=== PATIENT | female | born 1975 | race Caucasian/White ===

== ENCOUNTER 2018-06-17 12:24 | Emergency (ER) | END 2018-06-17 16:05 | disposition home or self-care (01) ==

== ENCOUNTER 2018-09-12 08:26 | Emergency (ER) | payer OTHER ==
[~2018-09-12] VITALS: Wt 72.9 kg
[~2018-09-12 08:26] MED LIST: AZIT250T PO; CETI10CA PO; FIORINAL PO; IBUP-1542 PO; SUMA25TA34 PO
[2018-09-12 08:30] VITALS: BP 139/75; PULSE 72; RESP 18
[2018-09-12] MEDS ORDERED: KETOROLAC 60 MG INJ IM STA (09:37)
[2018-09-12] MEDS ORDERED: ACET500C5 PO (10:43)
[2018-09-12] MEDS ORDERED: D-ME473S2 PO (10:43)
--- NOTE | 2018-09-12 11:33 | ERD ---
ER Documentation Chief Complaint Chief Complaint DRY COUGH/CONGESTION/HEADACHE X 5 DAYS; HPI 43-year-old female patient with a past medical history of migraine headaches presents to ED complaining of dry cough, congestion that, headache that started 5 days ago. Patient reports that she also has body aches. States that she has sore throat, and feels like she cannot cough up the phlegm. Denies any fever, chills, nausea, vomiting, diarrhea, neck stiffness. Denies any recent travel. Denies any chest pain, shortness of breath. ROS All systems reviewed and are negative except as per history of present illness. Medications Home Meds Active Scripts Acetaminophen* (Tylophen*) 500 Mg Capsule, 1 CAP PO Q6H PRN for PAIN AND OR ELEVATED TEMP, #20 CAP Prov:HEATHER BAPTISTE PA-C 09/12/18 Dextromethorphan Hb-Promethazine Hcl* (Promethazine DM* Syrup) 473 Ml Syrup, 5 ML PO Q6 PRN for COUGH, #100 ML Prov:HEATHER BAPTISTE PA-C 09/12/18 Cetirizine Hcl* (Zyrtec*) 10 Mg Capsule, 10 MG PO DAILY, #10 TAB.CHEW Prov:HEATHER ABPTISTE PA-C 06/17/18 Ibuprofen* (Motrin*) 600 Mg Tab, 600 MG PO Q6, #30 TAB Prov:HEATHER BAPTISTE PA-C 06/17/18 Azithromycin* (Zithromax*) 250 Mg Tablet, 250 MG PO .ZPACK DIRECTED, #6 TAB TAKE 500 MG (2 TABS) THE FIRST DAY THEN 250 MG (1 TAB) DAYS 2-5 Prov:WALDEMAR BERGERON PA-C 07/03/15 Aspirin/Caffeine/Butalbital* (Fiorinal*) 1 Cap Cap, 1 CAP PO TID for HEADACHE, #20 CAP Prov:MISAEL ROMERO MD 05/23/15 Sumatriptan Succinate* (Imitrex*) 25 Mg Tablet, 25 MG PO BID PRN for HEADACHE, #14 TAB May repeat after 2 hours if needed; MAX 200 mg/24 hours Prov:MISAEL ROMERO MD 05/23/15 Allergies Allergies: Coded Allergies: Penicillins (Verified Allergy, Mild, 06/17/18) tetracycline (Verified Allergy, Mild, 06/17/18) PMhx/Soc History of Surgery: No Anesthesia Reaction: No Hx Neurological Disorder: Yes (migraine) Hx Respiratory Disorders: No Hx Cardiac Disorders: No Hx Psychiatric Problems: No Hx Miscellaneous Medical Probl: No Hx Alcohol Use: No Hx Substance Use: No Hx Tobacco Use: No FmHx Family History: No diabetes, No coronary disease Physical Exam Vitals Vital Signs Date Temp Pulse Resp B/P (MAP) Pulse Ox O2 O2 Flow FiO2 Time Delivery Rate 09/12/18 98.1 72 18 139/75 99 08:30 (96) Physical Exam Const: [id number]-[id number]-[id number], well-nourished. In no acute distress. Head: Atraumatic, normocephalic Eyes: Normal Conjunctiva without injection. No purulent discharge. PERRL. EOMI ENT: Normal external ear. Ear canal without erythema. Tympanic membrane pearly schumacher without effusion or bulging. Nasal canal clear with normal turbinates. Moist oropharynx without tonsillar exudates. Non-erythematous pharynx. Uvula midline. No drooling. No trismus. Neck: Full range of motion. No meningismus. No cervical lymphadenopathy. Resp: Clear to auscultation bilaterally. No wheezing, rhonchi, rales, or crackles. No accessory muscle use. No retractions. Cardio: Regular rate and rhythm. No murmurs, rubs or gallops. Abd: Soft, non tender, non distended. Normal bowel sounds. No palpable masses. No rebound tenderness. No guarding. Skin: No petechiae or rashes Back: No midline tenderness. No CVA tenderness. Ext: No cyanosis, or edema. Neur: Awake and alert. Psych: Normal Mood and Affect Results 24 hrs Laboratory Tests Test 09/12/18 09:57 POC Beta HCG, Qualitative NEGATIVE Current Medications Medications Dose Sig/Alejandro Start Time Status Last (Trade) Ordered Route PRN Stop Time Admin Dose Reason Admin Ketorolac 60 mg ONCE STAT 09/12/18 DC 09/12/18 Tromethamine IM 09:37 10:08 (Toradol) 09/12/18 09:38 Procedures/MDM 43-year-old female patient with no significant past medical history presents to the ED complaining of headache, sore throat, dry cough, congestion, headache that started 5 days ago. Patient is afebrile and nontoxic-appearing. Patient was treated here in the ED with Toradol 60 mg IM with slight improvement of her headache. This patient presents to the ED with symptoms consistent with a viral acute upper respiratory infection. Patient's physical exam include lungs which were clear to auscultation and a normal pulse oximetry. There is a low suspicion for pneumonia, pneumothorax, mononucleosis, pulmonary embolism, epiglottitis, otitis media, otitis externa, viral/strep pharyngitis, sinusitis, myocarditis, pericarditis, endocarditis, peritonsillar abscess, mastoiditis, retropharyngeal abscess, meningitis, sepsis, acute abdomen or other emergent conditions. Fluids, rest, and symptomatic treatment are recommended for the management of patient's symptoms. Diagnosis: Cough, Headache Discharge medications: Tylenol, Promethazine DM Patient was instructed to return to the ED for any new or worsening symptoms. They should otherwise follow up with the primary care provider within 2-3 days. The patient's questions were answered at the time of discharge. Patient understood and agreed with discharge management. Departure Diagnosis: Primary Impression: Cough Additional Impression: Headache Headache type: unspecified Headache chronicity pattern: unspecified pattern Intractability: not intractable Qualified Codes: R51 - Headache Condition: Stable Patient Instructions: Uri, Viral, No Abx (Adult) Referrals: [facility] YOU HAVE RECEIVED A MEDICAL SCREENING EXAM AND THE RESULTS INDICATE THAT YOU DO NOT HAVE A CONDITION THAT REQUIRES URGENT TREATMENT IN THE EMERGENCY DEPARTMENT. FURTHER EVALUATION AND TREATMENT OF YOUR CONDITION CAN WAIT UNTIL YOU ARE SEEN IN YOUR DOCTORS OFFICE WITHIN THE NEXT 1-2 DAYS. IT IS YOUR RESPONSIBILITY TO MAKE AN APPOINTMENT FOR FOLOW-UP CARE. IF YOU HAVE A PRIMARY DOCTOR --you should call your primary doctor and schedule an appointment IF YOU DO NOT HAVE A PRIMARY DOCTOR YOU CAN CALL OUR PHYSICIAN REFERRAL HOTLINE AT IF YOU CAN NOT AFFORD TO SEE A PHYSICIAN YOU CAN CHOSE FROM THE FOLLOWING [facility] [address] [facility]. [facility] [address] [facility] [address] [facility] [address] [facility]. [facility] [address] [facility]. [facility] [address] [facility]. [facility] YOU HAVE RECEIVED A MEDICAL SCREENING EXAM AND THE RESULTS INDICATE THAT YOU DO NOT HAVE A CONDITION THAT REQUIRES URGENT TREATMENT IN THE EMERGENCY DEPARTMENT. FURTHER EVALUATION AND TREATMENT OF YOUR CONDITION CAN WAIT UNTIL YOU ARE SEEN I N YOUR DOCTORS OFFICE WITHIN THE NEXT 1-2 DAYS. IT IS YOUR RESPONSIBILITY TO MAKE AN APPOINTMENT FOR FOLOW-UP CARE. IF YOU HAVE A PRIMARY DOCTOR --you should call your primary doctor and schedule and appointment IF YOU DO NOT HAVE A PRIMARY DOCTOR YOU CAN CALL OUR PHYSICIAN REFERRAL HOTLINE AT . IF YOU CAN NOT AFFORD TO SEE A PHYSICIAN YOU CAN CHOSE FROM THE FOLLOWING [facility]: [facility] [address] [place] [address] [facility] [address] [place] [address] [facility] [address] [place] [address] Additional Instructions: Call your primary care doctor TOMORROW for an appointment during the next 2-3 days.See the doctor sooner or return here if your condition worsens before your appointment time. HEATHER BAPTISTE PA-C Sep 12, 2018 11:33
[2018-10-02] MEDS ORDERED: TRAM50TA2 PO (03:13)
[2018-10-02] MEDS ORDERED: IBUP-1542 PO (03:13)
== END 2018-09-12 11:19 | disposition home or self-care (01) ==
LOC: FTE 08:26
DX: R05 Cough (principal); R51 Headache; Z79.82 Long term (current) use of aspirin
CPT/HCPCS: 81025; 96372; J1885; Z7502